=== PATIENT | male | born 1965 | race American Indian/Alaskan Native ===

== ENCOUNTER 2019-09-14 08:11 | Emergency (ER) | payer SELFPAY ==
[2019-09-14 08:41] VITALS: BP 138/86
--- NOTE | 2019-09-14 09:25 | Emergency Department Report ---
Chief Complaint: Medical Clearance Stated Complaint: DIABETIC/HBP Time Seen by Provider: 09/14/19 09:22 - HPI History of Present Illness: 54-year-old male presents to the emergency room stating he needs refills on his diabetic and hypertensive medication. Patient has no other complaints at this time. - Exam Vital Signs: Vital Signs 09/14/19 08:33 Temperature 98.0 F Pulse Rate 76 Blood Pressure 138/86 O2 Sat by Pulse 95 Oximetry Physical Exam: Patient's alert and oriented 3 in no acute distress. Patient ambulatory without difficulty. MSE screening note: Focused history and physical exam performed. Due to findings the following was ordered: Patient has a blood sugar 135. I discussed with patient that he will need to follow up at a primary care provider for his refills and management of his chronic disease. ED Disposition for MSE Disposition: Z- MED SCREENING EXAM-LEFT Is pt being admited?: No Does the pt Need Aspirin: No Condition: Stable
== END 2019-09-14 09:50 | disposition left against medical advice (07) ==
LOC: ED 08:11
DX: Z76.0 Encounter for issue of repeat prescription (principal); Z53.21 Procedure and treatment not carried out due to patient leaving prior to being seen by health care provider
CPT/HCPCS: 82962

== ENCOUNTER 2021-02-17 10:11 | Emergency (ER) | payer SELFPAY ==
[2021-02-17 10:36] VITALS: BP 146/71
[2021-02-17] MEDS ORDERED: IBUPROFEN 800 MG TAB PO ONE (11:07)
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
== END 2021-02-17 13:19 | disposition home or self-care (01) ==
LOC: ED 10:11
DX: S13.4XXA Sprain of ligaments of cervical spine, initial encounter (principal); S39.012A Strain of muscle, fascia and tendon of lower back, initial encounter; S46.912A Strain of unspecified muscle, fascia and tendon at shoulder and upper arm level, left arm, initial encounter; I10 Essential (primary) hypertension; E11.9 Type 2 diabetes mellitus without complications; Z98.890 Other specified postprocedural states; Z79.899 Other long term (current) drug therapy; V49.49XA Driver injured in collision with other motor vehicles in traffic accident, initial encounter; Y93.89 Activity, other specified; Y92.410 Unspecified street and highway as the place of occurrence of the external cause; Y99.8 Other external cause status
CPT/HCPCS: 72040; 72100

== ENCOUNTER 2021-09-19 17:45 | Emergency (ER) | payer OTHER ==
[2021-09-19 19:51] VITALS: BP 176/89
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
== END 2021-09-19 20:25 | disposition home or self-care (01) ==
LOC: ED 17:45
DX: S29.012A Strain of muscle and tendon of back wall of thorax, initial encounter (principal); Z76.0 Encounter for issue of repeat prescription; I10 Essential (primary) hypertension; E11.9 Type 2 diabetes mellitus without complications; V89.2XXA Person injured in unspecified motor-vehicle accident, traffic, initial encounter; Y93.89 Activity, other specified; Y92.488 Other paved roadways as the place of occurrence of the external cause; Y99.8 Other external cause status
CPT/HCPCS: 99282

== ENCOUNTER 2021-10-17 18:20 | Emergency (ER) | payer SELFPAY | END 2021-10-18 04:30 | disposition left against medical advice (07) | LOC: ED 18:20 | DX: I10 Essential (primary) hypertension (principal); Z53.21 Procedure and treatment not carried out due to patient leaving prior to being seen by health care provider ==

== ENCOUNTER 2022-03-17 17:19 | Emergency (ER) | payer SELFPAY ==
[2022-03-17 17:44] VITALS: BP 138/82
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
== END 2022-03-18 05:11 | disposition home or self-care (01) ==
LOC: ED 17:19
DX: M62.838 Other muscle spasm (principal); M62.830 Muscle spasm of back; I10 Essential (primary) hypertension; E11.9 Type 2 diabetes mellitus without complications; V89.2XXA Person injured in unspecified motor-vehicle accident, traffic, initial encounter; Y93.89 Activity, other specified; Y92.89 Other specified places as the place of occurrence of the external cause; Y99.8 Other external cause status
CPT/HCPCS: 99282

== ENCOUNTER 2022-05-18 15:01 | Emergency (ER) | payer SELFPAY ==
[2022-05-18 16:53] VITALS: BP 174/76
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
--- NOTE | 2022-05-18 22:20 | XRay Report ---
RIGHT HAND 3 VIEWS INDICATION / CLINICAL INFORMATION: hand pain. COMPARISON: None available. FINDINGS: BONES / JOINT(S): No acute fracture or subluxation. Moderate DJD first carpometacarpal joint and firs t interphalangeal joint. SOFT TISSUES: No significant abnormality. ADDITIONAL FINDINGS: None. Signer Name: Hiren Self MD Signed: 05/18/2022 10:16 PM Workstation Name: [id number]
== END 2022-05-18 20:25 | disposition home or self-care (01) ==
LOC: ED 15:01
DX: S69.91XA Unspecified injury of right wrist, hand and finger(s), initial encounter (principal); M54.50 Low back pain, unspecified; I10 Essential (primary) hypertension; E11.9 Type 2 diabetes mellitus without complications; V89.2XXA Person injured in unspecified motor-vehicle accident, traffic, initial encounter; Y93.89 Activity, other specified; Y92.89 Other specified places as the place of occurrence of the external cause; Y99.8 Other external cause status
CPT/HCPCS: 99283